=== PATIENT | female | born 1930 | race Caucasian/White ===

== ENCOUNTER 2018-07-07 20:24 | Emergency (ER) | payer MEDICARE, BC ==
[2018-07-07 21:25] LABS: Basophils % (A) 0 %; Eosinophils # (A) 0.3 k/uL (0-0.7); Eosinophils % (A) 4 %; HCT 44.2 % (34.0-46.0); HGB 13.9 gm/dL (11.4-16.0); Lymphocytes # (A) 1.9 k/uL (1.0-4.8); Lymphocytes % (A) 27 %; MCH 28.3 pg (25.0-35.0); MCHC 31.5 g/dL (31.0-37.0); MCV 89.9 fL (80.0-100.0); Mean Platelet Volume 7.6; Monocytes # (A) 0.5 k/uL (0-1.0); Monocytes % (A) 7 %; Neutrophils # (A) 4.2 k/uL (1.3-7.7); Neutrophils % (A) 59 %; Platelet Count 219 k/uL (150-450); RBC 4.91 m/uL (3.80-5.40)
[2018-07-07 21:39] LABS: D-Dimer 0.42 mg/L FEU (<0.60); INR 0.9 (<1.2); Partial Thromboplastin Time 32.4 sec (22.0-30.0)
[2018-07-07 21:42] LABS: Albumin 3.8 g/dL (3.5-5.0); Calcium 9.4 mg/dL (8.4-10.2); Magnesium 2.2 mg/dL (1.6-2.3); Potassium 4.2 mmol/L (3.5-5.1); Total Bilirubin 0.2 mg/dL (0.2-1.3); Total Protein 6.5 g/dL (6.3-8.2)
[2018-07-07 21:45] LABS: Creatine Kinase 87 U/L (30-135)
[2018-07-07 21:58] LABS: Troponin I <0.012 ng/mL (0.000-0.034)
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
--- NOTE | 2018-07-07 22:46 | XR ---
EXAM: XR Chest, 2 Views CLINICAL HISTORY: ITS.REASON XR Reason: Chest Pain TECHNIQUE: Frontal and lateral views of the chest. COMPARISON: No relevant prior studies available. FINDINGS: Lungs: No consolidation, pleural effusion or pneumothorax. Pleural space: See above. Heart: No cardiomegaly. No mediastinal enlargement. No hilar enlargement. Trachea is unremarkable. Mediastinum: Unremarkable. Bones/joints: No suspicious lytic or sclerotic lesions of bone. Multilevel spine degenerative changes are noted. IMPRESSION: No acute cardiopulmonary disease.
[2018-07-07 22:56] VITALS: BP 146/84; PULSE 64; RESP 16
[2018-07-07 23:07] VITALS: TEMP 97.7
== END 2018-07-07 23:05 | disposition home or self-care (01) ==
LOC: EC 20:24
DX: F41.9 Anxiety disorder, unspecified (principal); R07.89 Other chest pain; I49.9 Cardiac arrhythmia, unspecified; I10 Essential (primary) hypertension; E11.9 Type 2 diabetes mellitus without complications; I25.2 Old myocardial infarction; Z87.891 Personal history of nicotine dependence; Z88.0 Allergy status to penicillin; Z88.5 Allergy status to narcotic agent; Z91.013 Allergy to seafood; Z79.82 Long term (current) use of aspirin; Z79.84 Long term (current) use of oral hypoglycemic drugs; Z79.899 Other long term (current) drug therapy
CPT/HCPCS: 36415; 71046; 80053; 82150; 82550; 82553; 83690; 83735; 83880; 84484; 85025; 85379; 85610; 85730; 93005; 99284